=== PATIENT | male | born 1995 | race American Indian/Alaskan Native ===

== ENCOUNTER 2017-08-19 11:11 | Emergency (ER) | payer OTHER ==
[2017-08-19 11:19] VITALS: BMI 28.2
[2017-08-19] MEDS ORDERED: Tdap Vaccine 0.5 ml Vial (10-64 yrs) IM ONE ×2 (12:01→12:04)
--- NOTE | 2017-08-19 12:06 | ED PDOC ---
HPI: General Adult Time Seen by Provider: 08/19/17 12:03 Chief Complaint (Nursing): Abnormal Skin Integrity Chief Complaint (Provider): RIGHT HAND INJURY History Per: Patient (22 Y/O MALE HERE FOR EVALUATION OF HAND INJURY THAT OCCURRED 20 MIN PRIOR TO ED ARRIVAL. PATIENT IS RIGHT HAND DOMINANT AND GOT PART OF FINGER CAUGHT BETWEEN FOLDING PART OF TABLE. NO LOSS OF FUNCTION. HERE FOR EVALUATION OF NEW WOUND.) Past Medical History Reviewed: Historical Data, Nursing Documentation, Vital Signs Vital Signs: Last Vital Signs Temp 98.6 F 08/19/17 11:20 Pulse 82 08/19/17 11:20 Resp 20 08/19/17 11:20 BP 130/86 08/19/17 11:20 Pulse Ox 96 08/19/17 11:20 - Family History Family History: States: No Known Family Hx - Immunization History Hx Tetanus Toxoid Vaccination: No Hx Influenza Vaccination: No Hx Pneumococcal Vaccination: No - Allergies Allergies/Adverse Reactions: Allergies Allergy/AdvReac Type Severity Reaction Status Date / Time No Known Allergies Allergy Verified 08/19/17 11:49 Review of Systems ROS Statement: Except As Marked, All Systems Reviewed And Found Negative Physical Exam - Reviewed Nursing Documentation Reviewed: Yes Vital Signs Reviewed: Yes - Physical Exam Appears: Positive for: Well, Non-toxic, No Acute Distress Head Exam: Positive for: ATRAUMATIC, NORMAL INSPECTION, NORMOCEPHALIC Skin: Positive for: Normal Color, Warm, DRY Eye Exam: Positive for: EOMI, Normal appearance, PERRL ENT: Positive for: Normal ENT Inspection Neck: Positive for: Normal, Painless ROM Cardiovascular/Chest: Positive for: Regular Rate, Rhythm Respiratory: Positive for: CNT, Normal Breath Sounds Gastrointestinal/Abdominal: Positive for: Normal Exam, Soft Back: Positive for: Normal Inspection Extremity: Positive for: Normal ROM, Other (SUPERFICIAL FLAP LACERATION DORSAL SURFACE OF RIGHT HAND BY DIP INDEX FINGER. NONTENDER DIGIT. ABLE TO FLEX DIP/PIP ) Neurologic/Psych: Positive for: Alert, Oriented - ECG O2 Sat by Pulse Oximetry: 96 - Progress ED Course And Treament: TDAP 0.5 ML IM X 1 DOSE ORDERED WOUND CLEANSED IN ED. BACITRACIN OINTMENT AND BANDAGE PLACED ON WOUND. Disposition - Clinical Impression Clinical Impression: Superficial laceration - Patient ED Disposition Is Patient to be Admitted: No - Disposition Disposition: Routine/Home Disposition Time: 12:06 Condition: FAIR Additional Instructions: F/U WITH PMD/URGENT CARE /ED IN WOUND CHECK IN 2 DAYS. Instructions: Taking Care of Cuts and Scrapes
[2017-08-19 12:35] VITALS: BP 132/81; PULSE 66; RESP 18; TEMP 98.7; O2SAT 100
== END 2017-08-19 12:20 | disposition home or self-care (01) ==
LOC: H.ER 11:11
DX: S69.91XA Unspecified injury of right wrist, hand and finger(s), initial encounter (principal); W45.8XXA Other foreign body or object entering through skin, initial encounter; Z23 Encounter for immunization